=== PATIENT | female | born 1970 | race Caucasian/White ===

== ENCOUNTER 2022-12-28 07:25 | Emergency (ER) | payer OTHER ==
[~2022-12-28] VITALS: Ht 149.9 cm; Wt 66.7 kg
[2022-12-28] MEDS ORDERED: KETOROLAC TROMETHAMINE 30 MG/ML VIAL IV STA (07:53)
[2022-12-28] MEDS ORDERED: FAMOTIDINE 20 MG/2 ML VIAL IV STA (07:53)
[2022-12-28] MEDS ORDERED: ONDANSETRON HCL INJ 2MG/ML 2ML 2 MG/ML VIAL IV STA (07:53)
[2022-12-28] MEDS ORDERED: ONDANSETRON HCL INJ 2MG/ML 2ML 2 MG/ML VIAL ONE (07:58)
[2022-12-28] MEDS ORDERED: SODIUM CHLORIDE 0.9% 1000ML 1,000 ML ONE ×2 (07:58→09:02)
[2022-12-28] MEDS ORDERED: KETOROLAC TROMETHAMINE 30 MG/ML VIAL ONE (07:58)
[2022-12-28] MEDS ORDERED: FAMOTIDINE 20 MG/2 ML VIAL IV ONE (07:59)
[2022-12-28] MEDS ORDERED: SODIUM CHLORIDE 0.9% 1000ML 1,000 ML IV ONE ×2 (08:00→09:30)
[2022-12-28] MEDS ORDERED: DICYCLOMINE HCL 20 MG/2 ML VIAL IM ONE ×2 (08:15→09:02)
[2022-12-28] MEDS ORDERED: IOPAMIDOL 370 MG/ML 100 ML INFUS..BTL INJ ONE (08:21)
[2022-12-28] MEDS ORDERED: ONDANSETRON ODT4 MG PO (09:13)
[2022-12-28] MEDS ORDERED: DICYCLOMINE HCL20 MG PO (09:23)
[2022-12-28] MEDS ORDERED: FAMOTIDINE40 MG PO (09:28)
[2022-12-28 10:30] VITALS: BP 115/68
== END 2022-12-28 10:35 | disposition home or self-care (01) ==
LOC: FSED 07:30
DX: R11.2 Nausea with vomiting, unspecified (principal); K52.9 Noninfective gastroenteritis and colitis, unspecified; J44.9 Chronic obstructive pulmonary disease, unspecified; E11.65 Type 2 diabetes mellitus with hyperglycemia; I10 Essential (primary) hypertension; E78.5 Hyperlipidemia, unspecified; K76.0 Fatty (change of) liver, not elsewhere classified
CPT/HCPCS: 74177; 80048; 80076; 81003; 96374; 96375; 96376; 99283; J0500; J1885; J2405; J7030; Q9967

== ENCOUNTER 2023-01-15 08:33 | Observation (INO) | payer OTHER ==
[~2023-01-15] VITALS: Ht 149.9 cm; Wt 67.1 kg
[~2023-01-15 08:33] MED LIST: DICYCLOMINE HCL20 MG PO; FAMOTIDINE40 MG PO; ONDANSETRON ODT4 MG PO
[2023-01-15] MEDS ORDERED: IOPAMIDOL 370 MG/ML 100 ML INFUS..BTL INJ ONE (10:05)
[2023-01-15] MEDS ORDERED: SODIUM CHLORIDE 0.9% 100 ML ONE (10:05)
[2023-01-15] MEDS ORDERED: SODIUM CHLORIDE 0.9% 1000ML 1,000 ML IV ONE (11:00)
[2023-01-15 13:01] LABS: CREATINE KINASE 48 IU/L (29-168)
[2023-01-15] MEDS: SODIUM CHLORIDE 0.9% 1000ML 1,000 ML IV SCH (14:05)
[2023-01-15] MEDS: ALPRAZOLAM 0.25 MG TAB PO PRN ×2 (15:40→22:26)
[2023-01-15] MEDS ORDERED: PROMETHAZINE HC25 M1 PO (18:34)
[2023-01-15] MEDS ORDERED: METFORMIN HCL500 MG PO (20:02)
[2023-01-15] MEDS ORDERED: PANTOPRAZOLE SO20 MG PO (20:02)
[2023-01-15] MEDS ORDERED: LAMOTRIGINE100 MG PO (20:02)
[2023-01-15] MEDS ORDERED: SIMVASTATIN40 MG PO (20:02)
[2023-01-15] MEDS ORDERED: QUETIAPINE FUM200 MG PO (20:02)
[2023-01-15] MEDS ORDERED: PAROXETINE HCL40 MG PO (20:02)
[2023-01-15] MEDS ORDERED: LISINOPRIL10 MG PO (20:02)
[2023-01-15] MEDS ORDERED: CYCLOBENZAPRINE5 MG PO (20:02)
[2023-01-15 21:01] VITALS: BP 137/87
[2023-01-15] MEDS ORDERED: DICYCLOMINE HCL 20 MG TAB PO PRN (21:45)
[2023-01-15] MEDS ORDERED: DEXTROSE 50% SYRINGE 50 ML IV PRN (21:45)
[2023-01-15] MEDS: LAMOTRIGINE 100 MG TAB PO SCH (21:53)
[2023-01-15] MEDS: QUETIAPINE FUMARATE 100 MG TAB PO SCH (21:53)
[2023-01-15 21:57] VITALS: BP 137/87
[2023-01-15 21:59] VITALS: BP 137/87
[2023-01-15] MEDS ORDERED: ONDANSETRON HCL INJ 2MG/ML 2ML 2 MG/ML VIAL IV PRN (22:00)
[2023-01-15] MEDS ORDERED: SIMETHICONE 80 MG CHEW PO PRN (22:00)
[2023-01-15] MEDS ORDERED: DOCUSATE SODIUM 100 MG CAP PO PRN (22:00)
[2023-01-15] MEDS ORDERED: MELATONIN 3 MG TAB PO PRN (22:00)
[2023-01-15] MEDS ORDERED: ACETAMINOPHEN 325 MG TAB PO PRN (22:00)
[2023-01-16] VITALS (8 sets, daily range): BP systolic 113–140; BP diastolic 73–96
[2023-01-16 01:32] LABS: CREATINE KINASE 51 IU/L (29-168)
[2023-01-16] MEDS: SODIUM CHLORIDE 0.9% 1000ML 1,000 ML IV SCH ×4 (01:33→19:15)
[2023-01-16 06:30] LABS: BASOPHILS % 0.6 % (0.0-1.0); EOSINOPHILS # (AUTO) 0.2 (0.0-0.4); EOSINOPHILS % 3.3 % (0.0-6.0); HEMATOCRIT 37.6 % (34.2-44.1); HEMOGLOBIN 11.7 g/dL (12.0-16.0); LYMPHOCYTES # (AUTO) 2.2 (1.0-3.2); LYMPHOCYTES % 39.8 % (18.0-39.1); MEAN CORPUSCULAR HEMOGLOBIN 29.6 pg (28-32); MEAN CORPUSCULAR HGB CONC 31.1 g/dL (31-35); MEAN CORPUSCULAR VOLUME 95.2 fL (81-99); MONOCYTES # (AUTO) 0.4 (0.2-0.8); MONOCYTES % 7.6 % (4.4-11.3); NEUTROPHILS # (AUTO) 2.6 (2.1-6.9); NEUTROPHILS % 48.5 % (38.7-80.0); PLATELET COUNT 195 x10e3/uL (140-360); RED BLOOD COUNT 3.95 x10e6/uL (3.6-5.1); RED CELL DISTRIBUTION WIDTH 13.1 % (11.7-14.4)
[2023-01-16 07:06] LABS: CHOL/HDL RATIO 3.7 (3.0-3.6)
[2023-01-16 07:48] LABS: ALBUMIN 3.4 g/dL (3.5-5.0); ALBUMIN/GLOBULIN RATIO 1.3 (0.8-2.0); ANION GAP 16.2 mmol/L (8-16); CALCIUM 8.4 mg/dL (8.4-10.2); CREATININE, SERUM 0.71 mg/dL (0.57-1.11); POTASSIUM 4.2 mmol/L (3.5-5.1)
[2023-01-16] MEDS ORDERED: LORAZEPAM 0.5 MG TAB PO ONE (08:00)
[2023-01-16] MEDS: ALPRAZOLAM 0.25 MG TAB PO PRN ×3 (08:28→22:47)
[2023-01-16] MEDS: LISINOPRIL 10 MG TAB PO SCH (08:29)
[2023-01-16] MEDS: PANTOPRAZOLE SOD 40 MG TABEC PO SCH (08:29)
[2023-01-16] MEDS: PAROXETINE HCL 20 MG TAB PO SCH (08:30)
[2023-01-16] MEDS: CYCLOBENZAPRINE HCL 10 MG TAB PO SCH ×3 (08:30→20:57)
[2023-01-16] MEDS: INSULIN REGULAR, HUMAN 100 UNIT/1 ML SQ SCH ×4 (08:32→20:59)
[2023-01-16 08:55] LABS: CREATINE KINASE 49 IU/L (29-168)
[2023-01-16] MEDS ORDERED: NICOTINE 14 MG/EA PATCH TOP SCH (09:00)
[2023-01-16] MEDS ORDERED: PROMETHAZINE HCL 25 MG TAB PO PRN (09:30)
[2023-01-16] MEDS: QUETIAPINE FUMARATE 100 MG TAB PO SCH (20:58)
[2023-01-16] MEDS: LAMOTRIGINE 100 MG TAB PO SCH (20:59)
[2023-01-16] MEDS ORDERED: SIMVASTATIN 40 MG TAB PO SCH (21:00)
[2023-01-17] MEDS: SODIUM CHLORIDE 0.9% 1000ML 1,000 ML IV SCH (03:15)
[2023-01-17 04:10] VITALS: BP 119/91
[2023-01-17] MEDS: ALPRAZOLAM 0.25 MG TAB PO PRN (06:14)
[2023-01-17 08:00] VITALS: BP 139/91
[2023-01-17 08:41] VITALS: BP 139/91
[2023-01-17] MEDS: PANTOPRAZOLE SOD 40 MG TABEC PO SCH (08:55)
[2023-01-17] MEDS: PAROXETINE HCL 20 MG TAB PO SCH (08:56)
[2023-01-17] MEDS: LISINOPRIL 10 MG TAB PO SCH (08:56)
[2023-01-17] MEDS: CYCLOBENZAPRINE HCL 10 MG TAB PO SCH (08:58)
[2023-01-17] MEDS ORDERED: FENOFIBRATE 145 MG TAB PO SCH (09:00)
[2023-01-17] MEDS ORDERED: ASPIRIN EC81 MG PO (09:22)
[2023-01-17] MEDS ORDERED: NICODERM CQ1 EAC1 TOP (09:22)
== END 2023-01-17 10:17 | disposition home or self-care (01) ==
LOC: FSED 08:36 → ERHOLD 11:21 → INTOOBSV 11:21 → MED/SURG2 18:08
PROVIDERS: ADMIT Internal Medicine; ATTEND Internal Medicine
DX: I67.1 Cerebral aneurysm, nonruptured (principal); F14.229 Cocaine dependence with intoxication, unspecified; E11.29 Type 2 diabetes mellitus with other diabetic kidney complication; I10 Essential (primary) hypertension; Z86.73 Personal history of transient ischemic attack (TIA), and cerebral infarction without residual deficits; F19.121 Other psychoactive substance abuse with intoxication delirium; Z20.822 Contact with and (suspected) exposure to COVID-19; F32.A Depression, unspecified; F41.9 Anxiety disorder, unspecified; E11.9 Type 2 diabetes mellitus without complications; E78.5 Hyperlipidemia, unspecified; E11.69 Type 2 diabetes mellitus with other specified complication; F29 Unspecified psychosis not due to a substance or known physiological condition; F17.210 Nicotine dependence, cigarettes, uncomplicated; F39 Unspecified mood [affective] disorder
CPT/HCPCS: 36415 ×3; 70450; 70496; 70551; 80053 ×2; 80061; 80307; 81003; 81025; 82550 ×2; 82553 ×2; 82948 ×3; 83036; 84484 ×2; 85025 ×2; 85610; 93005; 95819; 96361; 96372; 97161; 99284; G0378 ×3; J7030 ×2; J7050; Q9967; S0164 ×2; U0002

== ENCOUNTER 2023-03-25 17:25 | Emergency (ER) | payer OTHER ==
[~2023-03-25] VITALS: Ht 149.9 cm; Wt 68.0 kg
[~2023-03-25 17:25] MED LIST changes: +ASPIRIN EC81 MG PO; +CYCLOBENZAPRINE5 MG PO; +LAMOTRIGINE100 MG PO; +LISINOPRIL10 MG PO; +METFORMIN HCL500 MG PO; +NICODERM CQ1 EAC1 TOP; +PANTOPRAZOLE SO20 MG PO; +PAROXETINE HCL40 MG PO; +PROMETHAZINE HC25 M1 PO; +QUETIAPINE FUM200 MG PO; +SIMVASTATIN40 MG PO
[2023-03-25] MEDS ORDERED: ALBUTEROL/IPRATROPIUM 3 ML NEB ONE (17:53)
[2023-03-25] MEDS ORDERED: ACETAMINOPHEN 325 MG TAB ONE (17:53)
[2023-03-25] MEDS ORDERED: ALBUTEROL SULF 0.083% NEB SOLN 3 ML NEB NEB ONE (18:00)
[2023-03-25] MEDS ORDERED: ALBUTEROL/IPRATROPIUM 3 ML NEB NEB ONE (18:00)
[2023-03-25] MEDS ORDERED: ACETAMINOPHEN 325 MG TAB PO ONE (18:00)
[2023-03-25] MEDS ORDERED: IPRATROPIUM BROMIDE 0.02% 2.5 ML NEB NEB ONE (18:00)
[2023-03-25] MEDS ORDERED: AZITHROMYCIN250 MG PO (18:36)
[2023-03-25 18:44] VITALS: PULSE 74; RESP 17; O2SAT 96
== END 2023-03-25 18:50 | disposition home or self-care (01) ==
LOC: FSED 17:30
DX: R05.9 Cough, unspecified (principal); J02.9 Acute pharyngitis, unspecified; J44.9 Chronic obstructive pulmonary disease, unspecified; I10 Essential (primary) hypertension; E11.9 Type 2 diabetes mellitus without complications; E78.5 Hyperlipidemia, unspecified
CPT/HCPCS: 71046; 80307; 83518; 87400; 99283

== ENCOUNTER 2024-08-24 17:39 | Emergency (ER) | payer SELFPAY ==
[~2024-08-24] VITALS: Ht 149.9 cm; Wt 68.0 kg
[~2024-08-24 17:39] MED LIST changes: +AZITHROMYCIN250 MG PO
[2024-08-24 17:44] VITALS: PULSE 88; RESP 18; TEMP 97.3; O2SAT 100
[2024-08-24] MEDS ORDERED: ORPHENADRINE C100 MG PO (18:16)
[2024-08-24] MEDS ORDERED: NAPROSYN500 MG PO (18:16)
[2024-08-24] MEDS: KETOROLAC TROMETHAMINE 30 MG/ML VIAL IV STA (18:16)
[2024-08-24] MEDS: ORPHENADRINE CITRATE 30 MG/ML VIAL IM ONE (18:17)
== END 2024-08-24 18:40 | disposition home or self-care (01) ==
LOC: ER 17:49
DX: M54.42 Lumbago with sciatica, left side (principal); I10 Essential (primary) hypertension; E11.9 Type 2 diabetes mellitus without complications; J44.9 Chronic obstructive pulmonary disease, unspecified; E78.5 Hyperlipidemia, unspecified
CPT/HCPCS: 99284; J1885; J2360

== ENCOUNTER 2024-10-30 09:31 | Observation (INO) | payer MEDICAID, OTHER ==
[~2024-10-30] VITALS: Ht 149.9 cm; Wt 60.5 kg
[~2024-10-30 09:31] MED LIST changes: +NAPROSYN500 MG PO; +ORPHENADRINE C100 MG PO
[2024-10-30 09:35] VITALS: TEMP 98.4
[2024-10-30] MEDS: FAMOTIDINE 20 MG/2 ML VIAL IV ONE (10:28)
[2024-10-30] MEDS: ASPIRIN 325 MG TAB PO ONE (10:29)
[2024-10-30] MEDS ORDERED: DEXTROSE 50% SYRINGE 50 ML IV PRN (10:30)
[2024-10-30] MEDS ORDERED: ONDANSETRON HCL INJ 2MG/ML 2ML 2 MG/ML VIAL IV PRN (10:45)
[2024-10-30] MEDS ORDERED: DIPHENHYDRAMINE HCL INJ 50 MG/ML VIAL IV PRN (10:45)
[2024-10-30] MEDS ORDERED: HYDRALAZINE HCL 20 MG/ML VIAL IV PRN ×2 (10:45→12:00)
[2024-10-30 11:00] VITALS: PULSE 70; RESP 18
[2024-10-30] MEDS ORDERED: POLYETHYLENE GLYCOL 3350 17 GM PACK PO PRN (12:00)
[2024-10-30] MEDS: NICOTINE 14 MG/EA PATCH TOP SCH (12:56)
[2024-10-30] MEDS: NITROGLYCERIN 2% OINT 1 GM PKT TOP SCH (12:56)
[2024-10-30] MEDS: INSULIN REGULAR, HUMAN 100 UNIT/1 ML SQ SCH (12:58)
[2024-10-30] MEDS: FAMOTIDINE 20 MG TAB PO SCH (13:03)
[2024-10-30] MEDS ORDERED: HYDROXYZINE HCL25 MG PO (13:15)
[2024-10-30 13:22] VITALS: BP 159/87; PULSE 84; RESP 17; TEMP 98.5; O2SAT 95
[2024-10-30 15:11] VITALS: BP 121/94; PULSE 87; RESP 16; TEMP 98; O2SAT 100
[2024-10-30] MEDS: ENOXAPARIN SOD INJ 40 MG/0.4 ML SYR SC SCH (16:59)
[2024-10-30] MEDS: ACETAMINOPHEN 325 MG TAB PO PRN (16:59)
[2024-10-30 18:40] LABS: TROPONIN I 0.008 ng/mL (0-0.300)
[2024-10-30 20:00] VITALS: BP 121/74; PULSE 74; RESP 18; TEMP 97.7; O2SAT 99
[2024-10-30] MEDS: HYDROXYZINE HCL 10 MG TAB PO PRN (21:50)
[2024-10-30] MEDS: ZOLPIDEM TARTRATE 5 MG TAB PO PRN (21:50)
[2024-10-30] MEDS: KETOROLAC TROMETHAMINE 30 MG/ML VIAL IV PRN (21:50)
[2024-10-30] MEDS: SIMVASTATIN 40 MG TAB PO SCH (21:51)
[2024-10-31] VITALS: BP 139/75; PULSE 76; RESP 18; TEMP 98.1; O2SAT 99
[2024-10-31 04:00] VITALS: BP 132/81; PULSE 67; RESP 18; TEMP 97.7; O2SAT 100
[2024-10-31 07:30] LABS: BASOPHILS # (AUTO) 0.1 (0.0-0.1); BASOPHILS % 0.7 % (0.0-1.0); EOSINOPHILS # (AUTO) 0.1 (0.0-0.4); EOSINOPHILS % 1.3 % (0.0-6.0); HEMATOCRIT 44.7 % (34.2-44.1); HEMOGLOBIN 14.9 g/dL (12.0-16.0); LYMPHOCYTES # (AUTO) 2.7 (1.0-3.2); LYMPHOCYTES % 38.3 % (18.0-39.1); MEAN CORPUSCULAR HEMOGLOBIN 29.3 pg (28-32); MEAN CORPUSCULAR HGB CONC 33.3 g/dL (31-35); MONOCYTES # (AUTO) 0.4 (0.2-0.8); MONOCYTES % 6.3 % (4.4-11.3); NEUTROPHILS # (AUTO) 3.7 (2.1-6.9); PLATELET COUNT 205 x10e3/uL (140-360); RED BLOOD COUNT 5.08 x10e6/uL (3.6-5.1); RED CELL DISTRIBUTION WIDTH 13.2 % (11.7-14.4); WHITE BLOOD COUNT 6.99 x10e3/uL (4.8-10.8)
[2024-10-31 08:00] VITALS: BP 149/95; PULSE 74; RESP 18; TEMP 97.5; O2SAT 97
[2024-10-31 08:06] LABS: ALBUMIN 3.8 g/dL (3.5-5.0); ALBUMIN/GLOBULIN RATIO 1.2 (0.8-2.0); ANION GAP 15.8 mmol/L (8-16); BILIRUBIN,TOTAL 0.5 mg/dL (0.2-1.2); CREATININE, SERUM 0.72 mg/dL (0.57-1.11); MAGNESIUM 1.9 MG/DL (1.3-2.1); POTASSIUM 3.8 mmol/L (3.5-5.1)
[2024-10-31 08:22] LABS: CHOLESTEROL 330 MD/DL (0-199); HDL CHOLESTEROL 55 MG/DL (40-60); TRIGLYCERIDES 537 MG/DL (0-149)
[2024-10-31 08:37] LABS: CREATINE KINASE 43 IU/L (29-168)
[2024-10-31] MEDS ORDERED: NICOTINE 14 MG/EA PATCH TOP SCH (09:00)
[2024-10-31] MEDS: SENNOSIDES 8.6 MG TAB PO SCH (09:00)
[2024-10-31 09:01] LABS: TROPONIN I < 0.001 ng/mL (0-0.300)
[2024-10-31] MEDS: DOCUSATE SODIUM 100 MG CAP PO SCH (09:23)
[2024-10-31] MEDS: ASPIRIN 325 MG TAB EC PO SCH (09:24)
[2024-10-31] MEDS: VALSARTAN 160 MG TAB PO SCH (09:24)
[2024-10-31 12:00] VITALS: BP 141/89; PULSE 102; RESP 18; TEMP 98; O2SAT 98
[2024-10-31] MEDS ORDERED: ALBUTEROL/IPRATROPIUM 3 ML NEB NEB PRN (12:00)
[2024-10-31] MEDS: FENOFIBRATE 145 MG TAB PO SCH (12:09)
[2024-10-31] MEDS: PANTOPRAZOLE SOD 40 MG TABEC PO SCH (12:09)
[2024-10-31] MEDS ORDERED: ROSUVASTATIN CA20 MG PO (13:17)
[2024-10-31] MEDS ORDERED: FENOFIBRATE145 MG PO (13:17)
[2024-10-31] MEDS ORDERED: PANTOPRAZOLE SO40 MG PO (13:17)
[2024-10-31] MEDS ORDERED: KETOROLAC TROME10 MG PO (13:19)
[2024-10-31] MEDS ORDERED: CRESTOR 10MG PO SCH (21:00)
== END 2024-10-31 15:51 | disposition home or self-care (01) ==
LOC: FSED 09:35 → ERHOLD 10:32 → MED/SURG 12:16
PROVIDERS: ADMIT Internal Medicine; ATTEND Internal Medicine
DX: R07.89 Other chest pain (principal); R05.9 Cough, unspecified; E11.65 Type 2 diabetes mellitus with hyperglycemia; Z79.84 Long term (current) use of oral hypoglycemic drugs; I10 Essential (primary) hypertension; R94.31 Abnormal electrocardiogram [ECG] [EKG]; E78.1 Pure hyperglyceridemia; J44.9 Chronic obstructive pulmonary disease, unspecified; F17.210 Nicotine dependence, cigarettes, uncomplicated; E78.2 Mixed hyperlipidemia; F41.1 Generalized anxiety disorder; Z98.1 Arthrodesis status; Z86.73 Personal history of transient ischemic attack (TIA), and cerebral infarction without residual deficits; Z79.82 Long term (current) use of aspirin; Z79.899 Other long term (current) drug therapy
CPT/HCPCS: 36415 ×2; 71046; 80053 ×2; 80061; 81003; 82550 ×2; 82553; 82948 ×2; 83036; 83735; 84443; 84484 ×2; 85025 ×2; 93005; 93306; 94760; G0378 ×2; J1650; J1885 ×2; J3410; S0164

== ENCOUNTER 2025-07-30 08:22 | Emergency (ER) | payer OTHER ==
[~2025-07-30] VITALS: Ht 149.9 cm; Wt 58.3 kg
[~2025-07-30 08:22] MED LIST changes: +FENOFIBRATE145 MG PO; +HYDROXYZINE HCL25 MG PO; +KETOROLAC TROME10 MG PO; +NAPROXEN250 MG PO; +PANTOPRAZOLE SO40 MG PO; +ROSUVASTATIN CA20 MG PO
[2025-07-30] MEDS: ONDANSETRON HCL INJ 2MG/ML 2ML 2 MG/ML VIAL IV STA (09:03)
[2025-07-30] MEDS: KETOROLAC TROMETHAMINE 30 MG/ML VIAL IV STA (09:04)
[2025-07-30] MEDS ORDERED: BREZTRI AEROS10.7 GM IH (09:17)
[2025-07-30] MEDS ORDERED: JARDIANCE10 MG (09:17)
[2025-07-30] MEDS ORDERED: HYDROCODON-ACE1 EA11 PO (09:17)
[2025-07-30] MEDS ORDERED: METHOCARBAMOL750 MG PO (09:17)
[2025-07-30] MEDS ORDERED: VENTOLIN HFA18 GM INH (09:17)
[2025-07-30] MEDS ORDERED: ATORVASTATIN CA20 MG PO (09:17)
[2025-07-30] MEDS ORDERED: LYRICA50 MG PO (09:17)
[2025-07-30] MEDS ORDERED: IOPAMIDOL 370 MG/ML 100 ML INFUS..BTL INJ ONE (09:21)
[2025-07-30] MEDS ORDERED: CEPHALEXIN500 MG PO (11:02)
[2025-07-30] MEDS ORDERED: KETOROLAC TROME10 MG PO (11:02)
[2025-07-30] MEDS: CEFTRIAXONE 1 GM VIAL IV ONE (11:11)
[2025-07-30 11:17] VITALS: PULSE 79; RESP 16; TEMP 97.8; O2SAT 97
== END 2025-07-30 11:17 | disposition home or self-care (01) ==
LOC: FSED 08:25
DX: R20.8 Other disturbances of skin sensation (principal); N39.0 Urinary tract infection, site not specified; I10 Essential (primary) hypertension; E11.65 Type 2 diabetes mellitus with hyperglycemia; E11.40 Type 2 diabetes mellitus with diabetic neuropathy, unspecified; J44.9 Chronic obstructive pulmonary disease, unspecified; E78.5 Hyperlipidemia, unspecified; K21.9 Gastro-esophageal reflux disease without esophagitis; M54.9 Dorsalgia, unspecified; G89.29 Other chronic pain
CPT/HCPCS: 70450; 70491; 80053; 81003; 85025; 87086; 96374; 96375; 99284; J0696; J1885; J2405; Q9967